=== PATIENT | male | born 1965 | race Caucasian/White ===

== ENCOUNTER 2018-08-14 05:56 | Day surgery (SDC) | payer OTHER ==
[2018-08-14] MEDS ORDERED: DIPRIVAN 200 MG/20 ML IV ONE (05:57)
[2018-08-14] MEDS ORDERED: Ketamine HCl 50 MG/ML IV ONE (05:57)
[2018-08-14] MEDS ORDERED: Lactated Ringers 1,000 ML IV SCH (06:30)
[2018-08-14 06:57] LABS: ANION GAP 13.2 MEQ/L (5-15); BLOOD UREA NITROGEN 16 mg/dL (9-20); CHLORIDE 104 mmol/L (98-107); Calcium 9.4 mg/dL (8.4-10.2); Carbon Dioxide 28 mmol/L (22-30); Cholesterol 156 mg/dL (50-200); Creatinine 1 1.01 mg/dL (0.66-1.25); Glucose 114 mg/dL (74-106); HDL CHOLESTEROL 32 mg/dL (40-60); LDL, DIRECT 107 mg/dL (30-100); Potassium 4.4 mmol/L (3.5-5.1); Risk Ratio 4.9; SODIUM 140 mmol/L (137-145); TRIGLYCERIDE 118 mg/dL (30-150)
[2018-08-14 08:17] VITALS: O2SAT 97
--- NOTE | 2018-08-14 08:34 | OP ---
SURGERY DATE/TIME: 08/14/2018 0717 PREOPERATIVE DIAGNOSIS: Screening exam. POSTOPERATIVE DIAGNOSIS: Two small polyps in the sigmoid colon. PROCEDURE: Colonoscopy with cold forceps biopsy. SURGEON: Dr. Wall. ANESTHESIA: MAC. Medications given by anesthesia department. HISTORY: The patient is a 53 year-old white male presenting now for screening colonoscopy. He was appraised of the risks of the procedure including the risk of perforation, phlebitis, untoward reaction to medication, bleeding and missed lesions. The patient verbalized his understanding and desired to have the procedure performed. DESCRIPTION OF PROCEDURE: The patient was given the medications by the anesthesia department. He had continuous pulse oximetry, ECG monitoring, intermittent blood pressure monitoring and tidal CO2 monitoring during the examination. He was placed in the left lateral decubitus position. A digital rectal examination was performed and revealed normal anal sphincter tone, no masses and normal prostate. The flexible Olympus pediatric colonoscope was used to intubate the rectum. A view of the colon was developed sequentially to the cecum. Upon insertion and withdrawal, there were noted two small polyps in the low sigmoid to rectosigmoid area and these were biopsied and destroyed using multiple passes of cold biopsy forceps. No other mucosal lesions being encountered. The scope was removed from the patient who tolerated the procedure well and was sent back to OP recovery in good condition. The prep was noted to be good.
[2018-08-14 08:49] VITALS: BP 140/90; PULSE 68
== END 2018-08-14 08:54 | disposition home or self-care (01) ==
LOC: SDC 05:56
PROVIDERS: ATTEND Family Medicine
DX: K63.5 Polyp of colon (principal); Z12.11 Encounter for screening for malignant neoplasm of colon
CPT/HCPCS: 36415; 80048; 80061; 83721; 88305; J2704

== ENCOUNTER 2022-01-06 09:36 | Emergency (ER) | payer BC ==
[2022-01-06 09:45] VITALS: BP 170/96; PULSE 99; O2SAT 97
[2022-01-06] MEDS ORDERED: Adacel Vial IM ONE ×3 (10:06→11:01)
--- NOTE | 2022-01-06 10:43 | ERPHSYRPT ---
- History of Present Illness Source: patient Exam Limitations: no limitations Patient Subjective Stated Complaint: PT states "I let my dog down for a walk and there was a stray nearby I did not see and they started to fight and I tried to get them apart and my dog bit my hand and arm." Triage Nursing Assessment: Pt presented alert and oriented X 3, skin wpd Pt ambulates with an upright steady gait, able to speak in clear full sentences pt has laceration noted to right middle finger and left forearm/ wrist. Physician History: 56 yo wm bit by own dog while breaking up fight w stray dog. Pt will be given Tdap in ER. Dog is up to date w immunizations, and he did not get bit by stray dog. He is R handed and has lacs R 3rd digit and L wrist. Occurred: just prior to arrival Method of Injury: incised Quality: constant Severity of Pain-Max: moderate Severity of Pain-Current: moderate Extremities Pain Location: wrist: left, 3rd finger: right Modifying Factors: Improves With: movement Associated Symptoms: none Allergies/Adverse Reactions: No Known Drug Allergies Allergy (Verified 08/14/18 06:12) Hx Tetanus, Diphtheria Vaccination/Date Given: Yes Hx Influenza Vaccination/Date Given: No Hx Pneumococcal Vaccination/Date Given: No Immunizations Up to Date: Yes Travel Risk - International Travel Have you traveled outside of the country in past 3 weeks: No - Coronavirus Screening Are you exhibiting any of the following symptoms?: No Close contact with a COVID-19 positive Pt in past 14-21 Days: No - Vaccine Status Have you recieved a Covid-19 vaccination: No - Review of Systems Constitutional: No Symptoms Eyes: No Symptoms Ears, Nose, & Throat: No Symptoms Respiratory: No Symptoms Cardiac: No Symptoms Abdominal/Gastrointestinal: No Symptoms Genitourinary Symptoms: No Symptoms Skin: No Symptoms Neurological: No Symptoms Psychological: No Symptoms Endocrine: No Symptoms Hematologic/Lymphatic: No Symptoms Immunological/Allergic: No Symptoms - Past Medical History Pertinent Past Medical History: Yes Neurological History: No Pertinent History ENT History: No Pertinent History Cardiac History: Hypertension Respiratory History: Asthma Endocrine Medical History: No Pertinent History Musculoskeletal History: No Pertinent History GI Medical History: No Pertinent History History: No Pertinent History Psycho-Social History: No Pertinent History Male Reproductive Disorders: No Pertinent History Other Medical History: currently monitoring blood pressure at home not taking anything for it now - Past Surgical History Past Surgical History: Yes Neuro Surgical History: No Pertinent History Cardiac: No Pertinent History Respiratory: No Pertinent History Gastrointestinal: Cholecystectomy Genitourinary: No Pertinent History Musculoskeletal: No Pertinent History Male Surgical History: No Pertinent History - Social History Smoking Status: Current every day smoker Exposure to second hand smoke: Yes Drug Use: none Patient Lives Alone: No Significant Family History: no pertinent family hx - Nursing Vital Signs Nursing Vital Signs: Initial Vital Signs Temperature 97.2 F 01/06/22 09:41 Pulse Rate 99 H 01/06/22 09:41 Respiratory Rate 20 01/06/22 09:41 Blood Pressure 170/96 01/06/22 09:41 O2 Sat by Pulse Oximetry 97 01/06/22 09:41 Pain Scale Pain Intensity 6 Hypertensive - Physical Exam General Appearance: no apparent distress Eyes, Ears, Nose, Throat Exam: normal ENT inspection Neck Exam: normal inspection Cardiovascular/Respiratory Exam: chest non-tender, normal breath sounds, regular rate/rhythm, heart sounds normal Abdominal Exam: non-tender, soft Back Exam: normal inspection, normal range of motion Shoulder Exam: normal inspection, non-tender, no evidence of injury Elbow/Forearm Exam: normal inspection, non-tender Wrist Exam: soft tissue tenderness (Superficial L wrist abrasion/Lac-No need for repair/Ventral lac which will be steri-stripped/Good radial pulse, distal sensation, and capillary return) Hand Exam: swelling (R 3rd digit dorsal lac between PIP and DIP, 2cm/1cm ulnar lac between MCP-PIP/Good distal sensation and capillary return/FROM) Neuro/Tendon Exam: normal sensation, normal motor functions, normal tendon functions, responds to pain, no evidence tendon injury, No motor deficit, No sensory deficit Mental Status Exam: alert, oriented x 3, cooperative Skin Exam: normal color, warm, dry SpO2 Interpretation: normal SpO2: 97 O2 Delivery: Room Air - Course Nursing assessment & vital signs reviewed: Yes Ordered Tests: Medication Summary Discontinued Medications Generic Name Dose Route Start Last Admin Trade Name Freq PRN Reason Stop Dose Admin Diphtheria/Tetanus/Acell Pertussis 0.5 ml 01/06/22 10:06 01/06/22 11:01 Tdap --Diph,Pertuss(Acell),Tet Vac/Pf 0.5 Ml Vial IM 01/06/22 10:07 0.5 ml .ONCE ONE Administration Diphtheria/Tetanus/Acell Pertussis Confirm 01/06/22 10:55 Tdap --Diph,Pertuss(Acell),Tet Vac/Pf 0.5 Ml Vial Administered 01/06/22 10:56 Dose 0.5 ml IM .STK-MED ONE Diphtheria/Tetanus/Acell Pertussis Confirm 01/06/22 11:01 Tdap --Diph,Pertuss(Acell),Tet Vac/Pf 0.5 Ml Vial Administered 01/06/22 11:02 Dose 0.5 ml IM .STK-MED ONE - Progress Progress: improved Progress Note: 01/06/22 10:55 R 3rd digit dorsal lac/Cleansed w Hibiclens/Digital block 1% Lido wo epi/Lac soaked w Hibiclens-sterile water/Explored w extensor tendon intact/Repaired 4.0 Ethilon x9/No comps/2cm R 3rd digit Lac ulnar side between MCP-PIP/closed 4.0Ethilon x4/No comps Tdap given Pt refuses all pain meds 01/06/22 17:49 Counseled pt/family regarding: lab results, diagnosis, need for follow-up - Departure Departure Disposition: Home Clinical Impression: Dog bite Condition: Stable Critical Care Time: No Referrals: CARLENE DUTTON [ACTIVE STAFF] - Follow up/PCP as directed Instructions: Animal Bites (DC) Additional Instructions: Start Augmentin RASTA Keep lacerations dry for 2 days, then gently wash 1-2 times a day with soap/water Watch for signs of infection-Redness/Increasing pain/Temperature greater than 100.5/Increased swelling Sutures out in 10 days Prescriptions: Amox Tr/Potass Clav. 875 mg [Augmentin 875-125 Tablet] 875 mg PO BID 10 Days #20 tablet
== END 2022-01-06 11:23 | disposition home or self-care (01) ==
LOC: ED 09:36
DX: S60.472A Other superficial bite of right middle finger, initial encounter (principal); S60.872A Other superficial bite of left wrist, initial encounter; W54.0XXA Bitten by dog, initial encounter; I10 Essential (primary) hypertension; Z72.0 Tobacco use; Z28.310 Unvaccinated for COVID-19
CPT/HCPCS: 12001; 90471; 90715; 99284

== ENCOUNTER 2022-09-17 14:40 | Emergency (ER) | payer BC ==
--- NOTE | 2022-09-17 15:09 | ERPHSYRPT ---
- History of Present Illness Time Seen by Provider: 09/17/22 15:09 Source: patient Exam Limitations: no limitations Physician History: This is a 57-year-old overweight white gentleman has a history of hypertension and asthma and in the last month he has had at least 6 episodes of intermittent, right eye "floaters", flashing bright lights followed by unable to see peripherally with deep mari cloudy vision then clears up immediately afterwards. There is no associated pain. The patient currently can see fine and does not have any symptoms. However, patient became concerned today because he is never had to episodes in a 24-hour period. This time each episode lasted approximately 30 minutes and there was more complete deep mari cloudy vision that was not just peripheral. Today, after each episode, his vision completely returned to normal as it is at this time. Patient is a smoker of cigarettes. Patient denies chest pain. He denies shortness of breath. Patient does state that he is only monitoring his blood pressure at this time and not taking any medication for high blood pressure. Timing/Duration: intermittent, other Location: right eye Severity: none (Currently the patient is symptomatic) Apparent Injury: no Associated Symptoms: decreased vision (Right Icompletely resolved), blurred vision (Right Icompletely resolved) Visual Assistive Devices: None Chemical Exposure: No Trauma: No Welding Arc/Tanning Bed Exposure: No Allergies/Adverse Reactions: No Known Drug Allergies Allergy (Verified 09/17/22 15:06) Home Medications: Lisinopril 10 mg [Zestril 10 MG] 1 tab PO DAILY 09/17/22 [History] Hx Tetanus, Diphtheria Vaccination/Date Given: Yes Hx Influenza Vaccination/Date Given: No Hx Pneumococcal Vaccination/Date Given: No Travel Risk - International Travel Have you traveled outside of the country in past 3 weeks: No - Coronavirus Screening Are you exhibiting any of the following symptoms?: No Close contact with a COVID-19 positive Pt in past 14-21 Days: No - Vaccine Status Have you recieved a Covid-19 vaccination: No - Review of Systems Constitutional: No Symptoms Eyes: Vision Changes Ears, Nose, & Throat: No Symptoms (Right I) Respiratory: No Symptoms Cardiac: No Symptoms Abdominal/Gastrointestinal: No Symptoms Genitourinary Symptoms: No Symptoms Musculoskeletal: No Symptoms Skin: No Symptoms Neurological: No Symptoms Psychological: No Symptoms Endocrine: No Symptoms Hematologic/Lymphatic: No Symptoms Immunological/Allergic: No Symptoms All Other Systems: Reviewed and Negative - Past Medical History Pertinent Past Medical History: Yes Neurological History: No Pertinent History ENT History: No Pertinent History Cardiac History: Hypertension Respiratory History: Asthma Endocrine Medical History: No Pertinent History Musculoskeletal History: No Pertinent History GI Medical History: No Pertinent History History: No Pertinent History Psycho-Social History: No Pertinent History Male Reproductive Disorders: No Pertinent History Other Medical History: currently monitoring blood pressure at home not taking anything for it now - Past Surgical History Past Surgical History: Yes Neuro Surgical History: No Pertinent History Cardiac: No Pertinent History Respiratory: No Pertinent History Gastrointestinal: Cholecystectomy Genitourinary: No Pertinent History Musculoskeletal: No Pertinent History Male Surgical History: No Pertinent History - Social History Smoking Status: Current every day smoker Exposure to second hand smoke: Yes Drug Use: none Patient Lives Alone: No Significant Family History: no pertinent family hx - Nursing Vital Signs Nursing Vital Signs: Initial Vital Signs Temperature 97 F 09/17/22 15:07 Pulse Rate 86 09/17/22 15:07 Respiratory Rate 18 09/17/22 15:07 Blood Pressure 141/78 09/17/22 15:07 O2 Sat by Pulse Oximetry 98 09/17/22 15:07 Pain Scale Pain Intensity 0 - Physical Exam General Appearance: no apparent distress, alert, anxiety Eye Exam: bilateral eye: normal inspection, PERRL, EOMI Ears, Nose, Throat Exam: normal ENT inspection Neck Exam: normal inspection, non-tender, supple, full range of motion Respiratory Exam: normal breath sounds, lungs clear, airway intact, No chest tenderness, No respiratory distress Cardiovascular Exam: regular rate/rhythm, normal heart sounds, normal peripheral pulses Gastrointestinal Exam: No tenderness Extremity Exam: normal inspection, normal range of motion, pelvis stable Neurologic: alert, oriented x 3, cooperative, rn maternity II-XII nml as tested, normal mood/affect, nml cerebellar function, nml station & gait, sensation nml Skin Exam: normal color, warm, dry Lymphatic: No adenopathy SpO2 Interpretation: normal O2 Delivery: Room Air - Course Nursing assessment & vital signs reviewed: Yes Ordered Tests: Active Orders 24 hr Category Date Time Status CAROTID BILATERAL [US] Stat Exams 09/17/22 15:40 Completed HEAD WITHOUT CONTRAST [CT] Stat Exams 09/17/22 15:20 Completed Medication Summary Discontinued Medications Generic Name Dose Route Start Last Admin Trade Name Pretty PRN Reason Stop Dose Admin Aspirin 324 mg 09/17/22 17:02 09/17/22 17:19 Aspirin 81 Mg Tab.Chew PO 09/17/22 17:03 324 mg STAT ONE Administration Aspirin Confirm 09/17/22 17:18 Aspirin 81 Mg Tab.Chew Administered 09/17/22 17:19 Dose 324 mg .ROUTE .STK-MED ONE Atorvastatin Calcium 40 mg 09/17/22 17:46 Atorvastatin Calcium 40 Mg Tablet PO 09/17/22 17:47 STAT STA - Progress Progress: unchanged, re-examined Progress Note: 09/17/22 17:20 CAT scan of the head without contrast shows a 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 There are no acute intracranial abnormalities. Bilateral carotid Doppler shows moderately significant calcified plaquing right carotid with greater than 70% stenosis at the carotid bulb. There is mild ca lcified plaque getting left carotid bulb. Mild stenosis present We attempted to locate a vascular surgeon in [facility]. We contacted [facility] as well as [facility]. Both have vascular surgeons on staff and they are on-call. However, both hospitals say they are closed for any transfers at this time. We then contacted [facility] and they are also not excepting any transfer of patients at this time. However, they are having a vascular surgeon evaluate the CT scan of the head as well as the carotid Dopplers and the reports and he/she will call us back to make some recommendations. 09/17/22 17:50 medical complexity moderate Counseled pt/family regarding: diagnosis, need for follow-up, rad results Medical Desision Making - Independent Historian Additional History obtained from: Spouse - Discussion of managment Care discussed with:: specialist (Dr. Mcneill [facility]) Reviewed:: Test results, Need for additional workup Agreed on:: Treatment plan, need for follow-up Will see patient: In office (pt to call dr. mcneill office tomorrow 09/18/22 to schedule appt. no need to transfer emergently) - Diagnostic Testing Diagnostic Testing: Diagnostic tests were ordered,analyzed, and reviewed by me and used in my medical decision making for this patient. Radiologic studies (if ordered) were read by me initially then discussed with the radiologist . - Risk of complications The pt has a mod risk of morbidity or mortality based on: Need for prescription drug management, Need for major surgery in otherwise healthy patient - Departure Departure Disposition: Home Clinical Impression: Carotid artery calcification, Carotid artery stenosis, unilateral Condition: Stable Critical Care Time: No Referrals: [facility] [Primary Care Provider] - Follow up/PCP as directed Additional Instructions: Take a full aspirin daily. Take other medications as prescribed. Call Dr. Mcneill(vascular surgeon) tomorrow morning 09/18/22 Prescriptions: Atorvastatin Calcium 40 mg PO DAILY #30 tablet
--- NOTE | 2022-09-17 16:44 | XRAY ---
Indication: Right eye visual change. Two-dimensional sonogram and color Doppler imaging of the carotid arteries of the neck performed. Comparison: None Examination of the right carotid circulation demonstrates widely patent common carotid artery. Carotid bulb demonstrates moderate/significant calcified plaquing further extending into the origin/proximal internal carotid and lesser degree external carotid arteries. PSV of the CCA is 91 cm/s. PSV of the ICA is 389 cm/s. ICA/CCA ratio is 4.3. Normal antegrade vertebral artery flow. Examination of the left carotid circulation demonstrates widely patent common carotid artery. Mild scattered calcified plaquing at the level of the bulb extends into the origin of the internal carotid and external carotid arteries. PSV of the CCA is 106 cm/s. PSV of the ICA is 122 cm/s. ICA/CCA ratio is 1.2. Normal antegrade vertebral artery flow. Impression: 1. Moderate/significant calcified plaquing right carotid circulation as detailed. Velocity measurements and ratios favor greater than 70% stenosis. 2. Mild calcified plaquing left carotid circulation. Velocity measurements and ratios are negative for hemodynamically significant flow limiting stenosis.
--- NOTE | 2022-09-17 16:58 | XRAY ---
Indication: Right visual changes. Multiple contiguous axial images obtained through the head without contrast. Comparison: None Age-appropriate global atrophy and minimal periventricular degenerative micro-ischemia bilaterally. Medial left occipital lobe demonstrates 9 mm focus of encephalomalacia from old infarct. No acute intracranial hemorrhage, abnormal extra-axial fluid collection, or mass effect. Fourth ventricle is midline without hydrocephalus. Rosario-white matter differentiation preserved. Bony calvarium intact. Visualized paranasal sinuses and master cells are clear. Impression: Atrophy and degenerative micro-ischemia within normal limits for patient's age. 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 No acute intracranial abnormalities.
[2022-09-17] MEDS ORDERED: BABY ASPIRIN 81 MG CHEW PO ONE (17:02)
[2022-09-17 17:16] VITALS: BP 138/73; PULSE 76; O2SAT 98
[2022-09-17] MEDS ORDERED: BABY ASPIRIN 81 MG CHEW ONE (17:18)
[2022-09-17] MEDS ORDERED: LIPITOR 40MG PO STA (17:46)
[2022-09-17] MEDS ORDERED: LIPITOR 40MG ONE (17:57)
== END 2022-09-17 18:07 | disposition home or self-care (01) ==
LOC: ED 14:40
DX: I65.21 Occlusion and stenosis of right carotid artery (principal); H53.8 Other visual disturbances; I10 Essential (primary) hypertension; Z79.899 Other long term (current) drug therapy; Z28.310 Unvaccinated for COVID-19; Z72.0 Tobacco use
CPT/HCPCS: 70450; 93880; 99283; A9270-GY